=== PATIENT | male | born 1990 | race Two or more races ===

== ENCOUNTER 2023-02-16 11:42 | Outpatient (CLI) | payer BC, SELFPAY ==
[2023-02-16 15:19] LABS: Chlamydia DNA Amplified* NOT DETECTED (No Detected); GC DNA Amplified* NOT DETECTED (No Detected)
== END 2023-02-16 11:43 | disposition home or self-care (01) ==
PROVIDERS: PCP Family Medicine; Visit Provider Nurse Practitioner Family
DX: Z20.2 Contact with and (suspected) exposure to infections with a predominantly sexual mode of transmission (principal)
CPT/HCPCS: 87491; 87591